=== PATIENT | female | born 1980 | race Caucasian/White ===

== ENCOUNTER → 2023-12-06 | Outpatient (CLI) | payer OTHER ==
[~2023-12-06] MED LIST: MEDROL 4MG DOSPA4 MG PO; NORFLEX100 MG PO; OMNICEF 300MG300 MG PO
== END ==
LOC: RAD 09:54
DX: R07.89 Other chest pain (principal); Z98.890 Other specified postprocedural states; Z87.81 Personal history of (healed) traumatic fracture